=== PATIENT | male | born 1990 | race Caucasian/White ===

== ENCOUNTER 2017-06-11 09:09 | Emergency (ER) | payer OTHER ==
--- NOTE | 2017-06-11 09:41 | EDPHYS ---
Physician Documentation [facility] Name: Keyshawn De Paz Age: 26 yrs Sex: Male : 1990 Arrival Date: 06/11/2017 Time: 09:12 Bed 12 Private MD: ED Physician Brielle Barfield HPI: 06/11 09:36 This 26 yrs old Male presents to ER via Ambulatory with complaints of Finger cp Injury. 09:36 The patient or guardian reports a laceration. cp 09:36 The complaints affect the palmar aspect of distal phalanx of right ring finger. Onset: cp The symptoms/episode began/occurred yesterday. Associated signs and symptoms: Pertinent negatives: cyanosis distally, decreased sensation distally. Historical: - Allergies: 09:17 No Known Allergies; ch - Home Meds: 09:17 None [Active]; ch - PMHx: 09:17 None; ch - PSHx: 09:17 None; ch - Immunization history:: Adult Immunizations up to date, Last tetanus immunization: unknown, Flu vaccine is not up to date. Meningococcal vaccine is not up to date. - Social history:: Smoking status: Patient uses tobacco products, smokes one pack cigarettes per day. Patient/guardian denies using alcohol, street drugs. ROS: 09:37 Eyes: Negative for injury, pain, redness, and discharge. cp 09:37 Constitutional: Negative for body aches, chills, fever, poor PO intake. 09:37 Cardiovascular: Negative for chest pain, palpitations. 09:37 Respiratory: Negative for cough, wheezing. 09:37 Skin: Positive for laceration(s), of the distal phalanx of right fourth finger. 09:37 All other systems are negative. Exam: 09:38 Head/Face: Normocephalic, atraumatic. cp 09:38 Constitutional: The patient appears in no acute distress, alert, awake, well developed, well nourished. 09:38 Eyes: Periorbital structures: appear normal, Conjunctiva: normal, Lids and lashes: appear normal, bilaterally. 09:38 ENT: External ear(s): are unremarkable, Nose: is normal, Posterior pharynx: is normal, airway is patent. 09:38 Chest/axilla: Inspection: normal. 09:38 Cardiovascular: Rate: normal. 09:38 Respiratory: the patient does not display signs of respiratory distress, Respirations: normal, no use of accessory muscles, no retractions, no splinting, no tachypnea, labored breathing, is not present. 09:38 Skin: inspection of wound distal phalanx of right fourth finger limited as patient requesting current dressing not be removed. Vital Signs: 09:17 BP 131 / 79; Pulse 83; Resp 16; Temp 98.; Pulse Ox 100% on R/A; Weight 59.87 kg; Height ch 5 ft. 11 in. (180.34 cm); Pain 0/10; 09:17 Body Mass Index 18.41 (59.87 kg, 180.34 cm) ch MDM: 09:31 Patient medically screened. cp 09:35 Differential diagnosis: open fracture, simple laceration, cellulitis. cp 09:40 Data reviewed: vital signs, nurses notes, and as a result, I will discharge patient. cp 09:40 Counseling: I had a detailed discussion with the patient and/or guardian regarding: the cp historical points, exam findings, and any diagnostic results supporting the discharge/admit diagnosis, to return to the emergency department if symptoms worsen or persist or if there are any questions or concerns that arise at home. 09:40 Refusal of service: The patient/guardian displays adequate decision making capability cp and despite a detailed discussion of alternatives, benefits, risks, and consequences refuses: removal of dressing and inspection of wound. 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 Exp: ss 10/30/2018. Lot #: [id number]. } Route: IM; Site: left deltoid; 13:08 Follow up: Response: No adverse reaction; Marked relief of symptoms ch Disposition: 06/11/17 09:41 Discharged to Home. Impression: Laceration of Right Fourth finger. - Condition is Stable. - Discharge Instructions: Laceration Care, Adult. - Medication Reconciliation Form, Thank You Letter, Antibiotic Education, Prescription Opioid Use form. - Follow up: Private Physician; When: 1 - 2 days; Reason: Wound Recheck. - Problem is new. - Symptoms are unchanged. Addendum: 06/16/2017 19:55 Co-signature as Attending Physician, Brielle Barfield MD. m a2 Signatures: Germania Hope, RN RN Peri Anne RN RN ss Max Sheldon, KOTA PA Brielle Moralez MD MD ma2 Corrections: (The following items were deleted from the chart) 06/11 10:09 09:41 06/11/2017 09:41 Discharged to Home. Impression: Laceration of Right Fourth ss finger. Condition is Stable. Forms are Medication Reconciliation Form, Thank You Letter, Antibiotic Education, Prescription Opioid Use. Follow up: Private Physician; When: 1 - 2 days; Reason: Wound Recheck. Problem is new. Symptoms are unchanged. cp
--- NOTE | 2017-06-11 09:41 | ER ---
Nurse's Notes [facility] Name: Keyshawn De Paz Age: 26 yrs Sex: Male : 1990 Arrival Date: 06/11/2017 Time: 09:12 Bed 12 Private MD: Diagnosis: Laceration of Right Fourth finger Presentation: 06/11 09:16 Presenting complaint: Patient states: I cut my R fourth finger yesterday with a knife ch on accident at 1100. I dont know when my last tetanus shot was. Transition of care: patient was not received from another setting of care. Onset of symptoms was June 10, 2017 at 11:00. Initial Sepsis Screen: Does the patient meet any 2 criteria? No. Patient's initial sepsis screen is negative. Does the patient have a suspected source of infection? No. Patient's initial sepsis screen is negative. Care prior to arrival: hydrogen peroxide, irrigation, butterfly closure by pt yesterday. 09:16 Method Of Arrival: Ambulatory 09:16 Acuity: QUINTIN 5 ch Triage Assessment: 09:17 General: Appears in no apparent distress. comfortable, Behavior is calm, cooperative, ch appropriate for age. Pain: Complains of pain in palmar aspect of distal phalanx of right ring finger and palmar aspect of middle phalanx of right ring finger Pain currently is 0 out of 10 on a pain scale. Musculoskeletal: Capillary refill < 3 seconds, in bilateral fingers. Range of motion: intact in all extremities. 13:08 Injury Description: pt has hair wrapped around toes. Historical: - Allergies: 09:17 No Known Allergies; - Home Meds: 09:17 None [Active]; ch - PMHx: 09:17 None; ch - PSHx: 09:17 None; - Immunization history:: Adult Immunizations up to date, Last tetanus immunization: unknown, Flu vaccine is not up to date. Meningococcal vaccine is not up to date. - Social history:: Smoking status: Patient uses tobacco products, smokes one pack cigarettes per day. Patient/guardian denies using alcohol, street drugs. Screenin:08 Abuse screen: Denies threats or abuse. Denies injuries from another. Nutritional ch screening: No deficits noted. Tuberculosis screening: No symptoms or risk factors identified. Fall Risk None identified. Assessment: 09:30 General: Appears in no apparent distress. comfortable, Behavior is calm, cooperative. ss Neuro: Level of Consciousness is awake, alert, obeys commands. Cardiovascular: Capillary refill < 3 seconds is brisk in bilateral fingers. Respiratory: Airway is patent Respiratory effort is even, unlabored, Respiratory pattern is regular, symmetrical. Derm: Skin is intact, is healthy with good turgor, Skin is pink, warm \T\ dry. normal. Musculoskeletal: Circulation, motion, and sensation intact. Range of motion: intact in all extremities. Vital Signs: 09:17 BP 131 / 79; Pulse 83; Resp 16; Temp 98.; Pulse Ox 100% on R/A; Weight 59.87 kg; Height ch 5 ft. 11 in. (180.34 cm); Pain 0/10; 09:17 Body Mass Index 18.41 (59.87 kg, 180.34 cm) ED Course: 09:12 Patient arrived in ED. sb2 09:17 Triage completed. 09:17 Arm band placed on left wrist. Patient placed in an exam room. 09:21 Germania Hope RN is Primary Nurse. 09:30 Patient has correct armband on for positive identification. Call light in reach. Adult w/ patient. 09:31 Max Sheldon PA is PHCP. cp 09:31 Brielle Barfield MD is Attending Physician. cp 10:06 No provider procedures requiring assistance completed. Patient did not have IV access ss during this emergency room visit. 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 Exp: ss 10/30/2018. Lot #: [id number]. } Route: IM; Site: left deltoid; 13:08 Follow up: Response: No adverse reaction; Marked relief of symptoms Outcome: 09:41 Discharge ordered by . cp 10:08 Discharged to home ambulatory. ss 10:08 Condition: good 10:08 Discharge instructions given to patient, family, Instructed on discharge instructions, follow up and referral plans. wound care, Demonstrated understanding of instructions, follow-up care. 10:09 Patient left the ED. Signatures: Germania Hope, LALITHA DOTY Peri Anne RN RN Max Sheldon PA PA cp Rizwana Rosa sb2
[2017-06-11] MEDS ORDERED: TETANUS & DIPHTHERIA TOX,ADULT 0.5 ML VIAL ONE (09:56)
== END 2017-06-11 10:09 | disposition home or self-care (01) ==
LOC: ER 09:09
DX: S61.214A Laceration without foreign body of right ring finger without damage to nail, initial encounter (principal); W26.0XXA Contact with knife, initial encounter; Y92.9 Unspecified place or not applicable
CPT/HCPCS: 90714; 99283